=== PATIENT | female | born 1940 | race Caucasian/White ===

== ENCOUNTER 2016-10-16 18:48 | Emergency (ER) | payer MEDICARE, BC ==
[2016-10-16] MEDS ORDERED: ASPIRIN 81 MG TABLET, CHEWABLE PO ONE (19:04)
--- NOTE | 2016-10-16 19:05 | ER Document Report ---
ED Medical Screen (RME) - General Stated Complaint: CHEST PAIN Notes: Patient states she has been having chest pain since 9:00 this morning, stating it feels like pressure. Denies pain radiation. No nausea or vomiting. States she was sick with cold symptoms about 3 weeks ago. States she was under the care of a consumer loan officer many years ago, and had a nuclear stress test about 1 year ago which was normal. I have greeted and performed a rapid initial assessment of this patient. A comprehensive ED assessment and evaluation of the patient, analysis of test results and completion of the medical decision making process will be conducted by additional ED providers. TRAVEL OUTSIDE OF THE [place] IN LAST 30 DAYS: No - Related Data Allergies/Adverse Reactions: nitrofurantoin Allergy (Verified 10/16/16 19:04) Sulfa (Sulfonamide Antibiotics) Allergy (Verified 10/16/16 19:04) DUST Allergy (Uncoded 10/16/16 19:04) Past Medical History Past Surgical History: Reports: Hx Tubal Ligation Physical Exam - Cardiovascular Rhythm: Regular Heart sounds: Normal auscultation
[2016-10-16 19:48] LABS: PROTHROMBIN TIME 12.3 SEC (11.4-15.4)
[2016-10-16 19:57] LABS: ABSOLUTE LYMPHOCYTES (AUTO) 1.5 10^3/uL (0.5-4.7); ABSOLUTE MONOCYTES (AUTO) 0.5 10^3/uL (0.1-1.4); ABSOLUTE NEUT (AUTO) 2.2 10^3/uL (1.7-8.2); BASOPHILS % (AUTO) 0.6 % (0-2); EOSINOPHILS % (AUTO) 0.8 % (0-6); HEMATOCRIT 36.6 % (36.0-47.0); HGB HCT DIFFERENCE -0.6; LYMPHOCYTES % (AUTO) 35.5 % (13-45); MEAN CORPUSCULAR HGB CONC 32.9 g/dL (32.0-36.0); MEAN CORPUSCULAR VOLUME 88 fl (80-97); RED BLOOD COUNT 4.15 10^6/uL (3.72-5.28); RED CELL DISTRIBUTION WIDTH 14.5 % (11.5-14.0); SEGMENTED NEUTROPHILS % (AUTO) 52.1 % (42-78); WHITE BLOOD COUNT 4.3 10^3/uL (4.0-10.5)
--- NOTE | 2016-10-16 20:00 | ER Document Report ---
ED Cardiac - General Chief Complaint: Chest Pain Stated Complaint: CHEST PAIN Time seen by provider: 20:00 Mode of Arrival: Ambulatory Information source: Patient TRAVEL OUTSIDE OF THE [place] IN LAST 30 DAYS: No - HPI Patient complains to provider of: Chest pain Was the onset of pain: Gradual Is the pain a: New problem Chest pain location: Other - Left chest wall Quality of pain: Mild, Achy Severity now: Mild Severity at worst: Moderate Pain level currently: 1 Chest pain precipitating factors: At Rest Positive cardiac history: No Exacerbated by: Coughing, Deep breaths, Torso movement Relieved by: Nothing Similar symptoms previously: No Recently seen / treated by doctor: No Notes: Patient is a 76-year-old female who presents to the emergency room complaining of left-sided chest pain that started around 8:30 this morning, it is dull and achy in nature, she denies diaphoresis or shortness of breath, she states she feels that she is gas bubble trapped there but has been belching throughout the day with no relief, she reports it is increased with deep breaths, coughing or torso movement, as well as palpation of the chest wall, patient denies any fevers, no nausea, vomiting or diarrhea - Related Data Allergies/Adverse Reactions: nitrofurantoin Allergy (Verified 10/16/16 19:04) Sulfa (Sulfonamide Antibiotics) Allergy (Verified 10/16/16 19:04) DUST Allergy (Uncoded 10/16/16 19:04) Past Medical History - General Information source: Patient - Social History Smoking Status: Unknown if Ever Smoked Chew tobacco use (# tins/day): No Frequency of alcohol use: None Drug Abuse: None Family History: Reviewed & Not Pertinent Patient has suicidal ideation: No Patient has homicidal ideation: No Renal/ Medical History: Denies: Hx Peritoneal Dialysis Past Surgical History: Reports: Hx Tubal Ligation - Immunizations Hx Diphtheria, Pertussis, Tetanus Vaccination: Yes Review of Systems - Review of Systems Constitutional: No symptoms reported EENT: No symptoms reported Cardiovascular: Chest pain Respiratory: No symptoms reported Gastrointestinal: No symptoms reported Genitourinary: No symptoms reported Female Genitourinary: No symptoms reported Musculoskeletal: No symptoms reported Skin: No symptoms reported Hematologic/Lymphatic: No symptoms reported Neurological/Psychological: No symptoms reported -: Yes All other systems reviewed and negative Physical Exam - Vital signs Vitals: Temp Pulse Resp BP Pulse Ox 98.0 F 82 19 139/68 H 100 10/16/16 19:03 10/16/16 19:03 10/16/16 19:03 10/16/16 19:03 10/16/16 19:03 Interpretation: Normal - General General appearance: Appears well, Alert - HEENT Head: Normocephalic, Atraumatic Eyes: Normal Pupils: PERRL - Respiratory Respiratory status: No respiratory distress Chest status: Tender - Tender to palpate left anterior chest wall Breath sounds: Normal Chest palpation: Normal - Cardiovascular Rhythm: Regular Heart sounds: Normal auscultation Murmur: No - Abdominal Inspection: Normal Distension: No distension Bowel sounds: Normal Tenderness: Nontender Organomegaly: No organomegaly - Back Back: Normal, Nontender - Extremities General upper extremity: Normal inspection, Nontender, Normal color, Normal ROM , Normal temperature General lower extremity: Normal inspection, Nontender, Normal color, Normal ROM , Normal temperature, Normal weight bearing. No: Bob's sign - Neurological Neuro grossly intact: Yes Cognition: Normal Orientation: AAOx4 Delmy Coma Scale Eye Opening: Spontaneous [place] Coma Scale Verbal: Oriented [place] Coma Scale Motor: Obeys Commands Delmy Coma Scale Total: 15 Speech: Normal Motor strength normal: LUE, RUE, LLE, RLE Sensory: Normal - Psychological Associated symptoms: Normal affect, Normal mood - Skin Skin Temperature: Warm Skin Moisture: Dry Skin Color: Normal Course - Re-evaluation Re-evalutation: 10/17/16 00:58 Patient's lab, imaging in EKG findings unremarkable in the emergency room, pain is reproducible with palpation of the chest wall, symptoms have been going on for greater than 12 hours at this point in time, and cardiac enzymes are negative, symptoms are consistent with musculoskeletal pain, patient was given nothing hydrocodone dose pack, advised to follow-up with her primary care provider or return if symptoms worsen, patient acknowledges understanding and agreement with this plan - Vital Signs Vital signs: Temp Pulse Resp BP Pulse Ox 98.0 F 82 12 127/63 H 99 10/16/16 19:03 10/16/16 19:03 10/16/16 23:01 10/16/16 23:01 10/16/16 23:01 - Laboratory Result Diagrams: 10/16/16 19:22 10/16/16 19:22 Laboratory results interpreted by me: 10/16/16 10/16/16 19:22 19:22 RDW 14.5 H BUN 21 H - Diagnostic Test Radiology reviewed: Image reviewed, Reports reviewed - EKG Interpretation by Me EKG shows normal: Sinus rhythm Rate: Normal Rhythm: NSR Discharge - Discharge Clinical Impression: Chest wall pain Condition: Stable Disposition: HOME, SELF-CARE Instructions: Chest Wall Pain ([facility]) Additional Instructions: Follow up with your primary care provider in one to 2 days. Return to the emergency room immediately if symptoms worsen or any additional concerns. Referrals: MEGAN BAKER MD [Primary Care Provider] - Follow up as needed
[2016-10-16 20:01] LABS: ALANINE AMINOTRANSFERASE 42 U/L (9-52); ALBUMIN 4.2 g/dL (3.5-5.0); ALKALINE PHOSPHATASE 69 U/L (38-126); ANION GAP 9 (5-19); ASPARTATE AMINO TRANSFERASE 30 U/L (14-36); BILIRUBIN,TOTAL 0.3 mg/dL (0.2-1.3); BLOOD UREA NITROGEN 21 mg/dL (7-20); CALCIUM 9.6 mg/dL (8.4-10.2); CARBON DIOXIDE 28 mmol/L (22-30); CHLORIDE 102 mmol/L (98-107); CREATINE KINASE 70 U/L (30-135); CREATININE RESULT 0.76 mg/dL (0.52-1.25); GLUCOSE 105 mg/dL (75-110); POTASSIUM 4.5 mmol/L (3.6-5.0); SODIUM 139.1 mmol/L (137-145); TOTAL PROTEIN 6.9 g/dL (6.3-8.2)
[2016-10-16 20:14] LABS: TROPONIN I < 0.012 ng/mL
[2016-10-16] MEDS ORDERED: MAG HYDROX/AL HYDROX/SIMETH SUSP 30 ML UDCUP PO ONE (21:32)
[2016-10-16] MEDS ORDERED: LIDOCAINE 2% VISCOUS SOLN 20 ML UDCUP PO ONE (21:32)
[2016-10-16] MEDS ORDERED: METOCLOPRAMIDE HCL ORAL SOLN 10 MG/10 ML UDCUP PO ONE (21:32)
[2016-10-16] MEDS ORDERED: HYDROCODONE/ACETAMINOPHEN 5-325 MG TABLET PO ONE (22:16)
[2016-10-16] MEDS ORDERED: HYDROCODONE/ACETAMINOPHEN 5-325 MG 6 TAB/DSPK PO PRN (23:13)
[2016-10-16 23:31] VITALS: BP 127/63
--- NOTE | 2016-10-17 08:38 | EKG REPORT ---
SEVERITY:- NORMAL ECG - SINUS RHYTHM : Confirmed by: Anderson Baltazar 17-Oct-2016 08:37:12
== END 2016-10-16 23:20 | disposition home or self-care (01) ==
LOC: ER 18:48
DX: R07.89 Other chest pain (principal); R14.2 Eructation; Z88.1 Allergy status to other antibiotic agents; Z88.2 Allergy status to sulfonamides; Z91.048 Other nonmedicinal substance allergy status
CPT/HCPCS: 93005; 99285; 36415; 82553; 82550; 85025; 85610; 80053; 84484; 71010; 93010; A9270 ×4; J3490

== ENCOUNTER 2016-12-01 09:13 | Day surgery (SDC) | payer MEDICARE, BC ==
[~2016-12-01 09:13] MED LIST: CHONDR SU A NA/HYALUR INTRAOC KIT (SURGICARE) ONE; EPINEPHRINE INJ/PF 1 MG/1 ML AMPULE ONE; KETOROLAC TROMETHAMINE 0.45% 4 DROP/0.4 ML DROPERETTE OS PRN; LIDOCAINE 1% INJ-PF (10 MG/ML) 30 ML SDV ONE; MIDAZOLAM 2 MG/2 ML INJ ONE
[2016-12-01] MEDS: CYCLOPENTOLATE 0.2%/PHENYLEPHRINE 1% OPH SOLN 2 ML OS PRN ×3 (09:28→09:51)
[2016-12-01] MEDS: TROPICAMIDE 1% OPH SOLN 3 ML OS PRN ×3 (09:28→09:51)
[2016-12-01] MEDS: TETRACAINE HCL 0.5% OPH SOLN 2 ML OS PRN ×3 (09:28→10:10)
[2016-12-01] MEDS: BESIFLOXACIN HCL 0.6% OPH SUSP 5 ML BOTTLE OS PRN ×4 (09:29→10:34)
[2016-12-01] MEDS ORDERED: PHENYLEPHRINE/KETOROLAC 1%-0.3% 4 ML VIAL ONE (09:36)
[2016-12-01] MEDS ORDERED: MIDAZOLAM 2 MG/2 ML INJ ONE (09:41)
[2016-12-01] MEDS ORDERED: FENTANYL CITRATE INJ/PF 100 MCG/2 ML AMPUL ONE (09:41)
--- NOTE | 2016-12-01 19:48 | [facility] OPERATIVE REPORT E ---
[facility] Operative Report NAME: LAURY PALMER AGE: 76Y DATE OF SURGERY: 12/01/2016 ROOM: PREOPERATIVE DIAGNOSIS: Cataract, left eye. POSTOPERATIVE DIAGNOSIS: Cataract, left eye. OPERATION: Cataract extraction with intraocular lens implant of the left eye. SURGEON: MARCELLE CHRISTIAN M.D. ANESTHESIA: Topical. PROCEDURE: After obtaining appropriate consent, the patient's left eye was prepped and draped in sterile fashion as well as the surgeon in a sterile manner and cataract surgery was started. First a paracentesis blade was used to make a small side-port incision. Viscoelastic was used to inflate the anterior chamber. Next a 2.4 mm incision was made with the paracentesis blade. A continuous capsulorrhexis incision was made using a cystotome and Utrata forceps. Following this hydrodissection was carried out to make the lens fully loose and mobile and it was rotated 90 degrees. Following this, a ozywxk-xgg-vgxgdvl technique was used to phacoemulsify the lens with a CDE of 8.21. The remaining cortex was removed with irrigation/aspiration. Provisc was instilled into the capsular bag to inflate the bag. A SN60WF, 18.5 diopter lens was placed. The remaining viscoelastic material was removed with irrigation/aspiration. Following this, a 10-0 nylon suture was used to close the incision and it was found to be watertight. Vigamox was instilled in the eye and a protective shield was placed over the eye. The patient returned to the postoperative recovery in stable condition. DICTATING PHYSICIAN: MARCELLE CHRISTIAN M.D. [id number] PHY#: [id number] ID: [id number] JOB#: [id number] ACCT: [id number] cc:MARCELLE CHRISTIAN M.D. >
--- NOTE | 2016-12-02 11:13 | [facility] DISCHARGE SUMMARY E ---
[facility] Discharge Summary NAME: LAURY PALMER AGE: 76Y ADMITTED: 12/01/2016 DISCHARGED: 12/01/2016 HISTORY OF PRESENT ILLNESS AND HOSPITAL COURSE: This is a 76-year-old female who underwent cataract extraction of the left eye. DIAGNOSIS: Cataract, left eye. HOSPITAL COURSE: She underwent surgery because she was having glare from headlights making it difficult to drive at night. DISCHARGE INSTRUCTIONS: 1. She should be on a regular diet. 2. No bending at the waist and no heavy lifting. 3. She is to use Besivance, Ilevro, and Durezol at 3 p.m. and 8 p.m. and sleep with a rigid shield. 4. I will see her for her one-day postoperative tomorrow. DICTATING PHYSICIAN: MARCELLE CHRISTIAN M.D. [id number] PHY#: [id number] ID: [id number] JOB#: [id number] ACCT: [id number] cc:MARCELLE CHRISTIAN M.D. >
== END 2016-12-01 11:16 | disposition home or self-care (01) ==
LOC: SC 09:13
PROVIDERS: ATTEND Internal Medicine
PROC: 08RK3JZ Replacement of Left Lens with Synthetic Substitute, Percutaneous Approach (ICD-10-PCS; principal; 2016-12-01 10:00)
DX: H25.813 Combined forms of age-related cataract, bilateral (principal); H57.03 Miosis; I10 Essential (primary) hypertension; K21.9 Gastro-esophageal reflux disease without esophagitis; Z79.899 Other long term (current) drug therapy; Z88.0 Allergy status to penicillin; Z88.2 Allergy status to sulfonamides
CPT/HCPCS: 66984; V2632; J2250; J3490 ×2; A9270; J3010; C9447; 142; J0171

== ENCOUNTER 2016-12-15 09:07 | Day surgery (SDC) | payer MEDICARE, BC ==
[~2016-12-15 09:07] MED LIST changes: -CHONDR SU A NA/HYALUR INTRAOC KIT (SURGICARE) ONE; -EPINEPHRINE INJ/PF 1 MG/1 ML AMPULE ONE; +KETOROLAC TROMETHAMINE 0.45% 4 DROP/0.4 ML DROPERETTE OD PRN; -KETOROLAC TROMETHAMINE 0.45% 4 DROP/0.4 ML DROPERETTE OS PRN; -LIDOCAINE 1% INJ-PF (10 MG/ML) 30 ML SDV ONE; -MIDAZOLAM 2 MG/2 ML INJ ONE
[2016-12-15] MEDS ORDERED: EPINEPHRINE INJ/PF 1 MG/1 ML AMPULE ONE (09:10)
[2016-12-15] MEDS ORDERED: LIDOCAINE 1% INJ-PF (10 MG/ML) 30 ML SDV ONE (09:11)
[2016-12-15] MEDS ORDERED: CHONDR SU A NA/HYALUR INTRAOC KIT (SURGICARE) ONE (09:11)
[2016-12-15] MEDS: CYCLOPENTOLATE 0.2%/PHENYLEPHRINE 1% OPH SOLN 2 ML OD PRN ×3 (09:54→10:14)
[2016-12-15] MEDS: TROPICAMIDE 1% OPH SOLN 3 ML OD PRN ×3 (09:54→10:14)
[2016-12-15] MEDS: BESIFLOXACIN HCL 0.6% OPH SUSP 5 ML BOTTLE OD PRN ×3 (09:54→11:13)
[2016-12-15] MEDS: TETRACAINE HCL 0.5% OPH SOLN 2 ML OD PRN ×3 (09:55→10:41)
[2016-12-15] MEDS ORDERED: MIDAZOLAM 2 MG/2 ML INJ ONE (10:22)
[2016-12-15] MEDS ORDERED: PHENYLEPHRINE/KETOROLAC 1%-0.3% 4 ML VIAL ONE (10:51)
--- NOTE | 2016-12-15 19:52 | [facility] OPERATIVE REPORT E ---
[facility] Operative Report NAME: LAURY PALMER AGE: 76Y DATE OF SURGERY: ROOM: PREOPERATIVE DIAGNOSIS: CATARACT, RIGHT EYE. POSTOPERATIVE DIAGNOSIS: CATARACT, RIGHT EYE. OPERATION: Cataract extraction with intraocular lens implant of the right eye. SURGEON: MARCELLE CHRISTIAN M.D. ANESTHESIA: Topical. PROCEDURE: After obtaining appropriate consent, the patient's right eye was prepped and draped in sterile fashion as well as the surgeon in a sterile manner and cataract surgery was started. First a paracentesis blade was used to make a small side-port incision. Viscoelastic was used to inflate the anterior chamber. Next a 2.4 mm incision was made with the paracentesis blade. A continuous capsulorrhexis incision was made using a cystotome and Utrata forceps. Following this hydrodissection was carried out to make the lens fully loose and mobile and it was rotated 90 degrees. Following this, a qywzoe-qpt-xixtalk technique was used to phacoemulsify the lens with a CDE of 6.12. The remaining cortex was removed with irrigation/aspiration. Provisc was instilled into the capsular bag to inflate the bag. A SN60WF 19.0 diopter lens was placed. The remaining viscoelastic material was removed with irrigation/aspiration. Following this, a 10-0 nylon suture was used to close the incision and it was found to be watertight. Vigamox was instilled in the eye and a protective shield was placed over the eye. The patient returned to the postoperative recovery in stable condition. DICTATING PHYSICIAN: MARCELLE CHRISTIAN M.D. [id number] PHY#: [id number] ID: [id number] JOB#: [id number] ACCT: [id number] cc:MARCELLE CHRISTIAN M.D. >
--- NOTE | 2016-12-15 19:53 | [facility] DISCHARGE SUMMARY E ---
[facility] Discharge Summary NAME: LAURY PALMER AGE: 76Y ADMITTED: 12/15/2016 DISCHARGED: FINAL DIAGNOSIS: Cataract, right eye. HOSPITAL COURSE: This is a 76-year-old female who underwent cataract extraction of the right eye. She underwent surgery because she was having difficulty reading road signs and having to get closer to them and having significant glare at night. She should be on a regular diet, no bending at her waist, no heavy lifting. She is to use Besivance, Ilevro, and Durezol at 3 p.m. and 8 p.m. and sleep with a rigid shield. I will see her for 1 day postoperative tomorrow. DICTATING PHYSICIAN: MARCELLE CHRISTIAN M.D. [id number] PHY#: [id number] ID: [id number] JOB#: [id number] ACCT: [id number] cc:MARCELLE CHRISTIAN M.D. >
== END 2016-12-15 11:56 | disposition home or self-care (01) ==
LOC: SC 09:07
PROVIDERS: ATTEND Internal Medicine
PROC: 08RJ3JZ Replacement of Right Lens with Synthetic Substitute, Percutaneous Approach (ICD-10-PCS; principal; 2016-12-15 10:30)
DX: H25.811 Combined forms of age-related cataract, right eye (principal); H57.03 Miosis; Z96.1 Presence of intraocular lens; I49.9 Cardiac arrhythmia, unspecified; Z88.0 Allergy status to penicillin; Z88.2 Allergy status to sulfonamides; Z79.899 Other long term (current) drug therapy
CPT/HCPCS: 66984; V2632; J2250; J3490 ×2; A9270; J0171; C9447; 142

== ENCOUNTER → 2019-01-23 | Outpatient (CLI) | payer MEDICARE, BC ==
--- NOTE | 2019-01-23 15:46 | EKG REPORT ---
SEVERITY:- NORMAL ECG - SINUS RHYTHM : Confirmed by: Mahamed Olivera MD 23-Jan-2019 15:46:01
== END ==
LOC: OD 14:09
PROVIDERS: ATTEND Orthopaedic Surgery
DX: Z01.810 Encounter for preprocedural cardiovascular examination (principal); G56.30 Lesion of radial nerve, unspecified upper limb
CPT/HCPCS: 93005; 93010

== ENCOUNTER 2019-07-26 17:48 | Inpatient (IN) | payer MEDICARE, BC ==
--- NOTE | 2019-07-26 18:41 | RADIOLOGY REPORT (SQ) ---
EXAM DESCRIPTION: HIP RIGHT AP/LATERAL COMPLETED DATE/TIME: 07/26/2019 6:15 pm REASON FOR STUDY: fall COMPARISON: None. NUMBER OF VIEWS: 3 images of the pelvis and right hip including cross-table lateral. LIMITATIONS: None. FINDINGS: Osteopenic. Right superior pubic ramus fracture looks mildly comminuted. Acetabulum and right femur intact. Sacrum poorly evaluated due to obscuring stool. OTHER: No other significant finding. IMPRESSION: Right superior pubic ramus fracture. Osteopenia. TECHNICAL DOCUMENTATION: JOB ID: [id number] Reading location - IP/workstation name: [email or web address]
[2019-07-26] MEDS ORDERED: MORPHINE SULFATE 10 MG/ML INJ IV ONE (20:35)
[2019-07-26 21:39] LABS: ABSOLUTE LYMPHOCYTES (AUTO) 1.2 10^3/uL (0.5-4.7); ABSOLUTE MONOCYTES (AUTO) 0.6 10^3/uL (0.1-1.4); ABSOLUTE NEUT (AUTO) 7.4 10^3/uL (1.7-8.2); BASOPHILS % (AUTO) 0.3 % (0-2); EOSINOPHILS % (AUTO) 0.1 % (0-6); HEMATOCRIT 35.6 % (36.0-47.0); HEMOGLOBIN 11.9 g/dL (12.0-15.5); LYMPHOCYTES % (AUTO) 12.9 % (13-45); MEAN CORPUSCULAR HEMOGLOBIN 29.6 pg (27.0-33.4); MEAN CORPUSCULAR HGB CONC 33.4 g/dL (32.0-36.0); MEAN CORPUSCULAR VOLUME 89 fl (80-97); MONOCYTES % (AUTO) 6.5 % (3-13); PLATELET COUNT 143 10^3/uL (150-450); RED BLOOD COUNT 4.02 10^6/uL (3.72-5.28); RED CELL DISTRIBUTION WIDTH 14.7 % (11.5-14.0); SEGMENTED NEUTROPHILS % (AUTO) 80.2 % (42-78); TOTAL CELLS COUNTED % (AUTO) 100 %; WHITE BLOOD COUNT 9.3 10^3/uL (4.0-10.5)
[2019-07-26 21:43] LABS: APPEARANCE,URINE CLEAR; BILIRUBIN,URINE NEGATIVE (NEGATIVE); COLOR,URINE STRAW; GLUCOSE, URINE NEGATIVE (NEGATIVE); KETONES,URINE TRACE mg/dL (NEGATIVE); PROTEIN,URINE NEGATIVE (NEGATIVE); URINE SPECIFIC GRAVITY 1.008; UROBILINOGEN,URINE NEGATIVE mg/dL (<2.0)
--- NOTE | 2019-07-26 21:44 | ER Document Report ---
ED General - General Chief Complaint: Hip Pain Stated Complaint: FALL/HIP PAIN Time Seen by Provider: 07/26/19 20:37 Primary Care Provider: MEGAN BAKER MD [Primary Care Provider] - Follow up as needed Notes: 79-year-old woman presents to the emergency department with a history of a fall at home apparently was unable to get up. EMS was called and she was transported to the emergency department she was given 50 mg of fentanyl in route. X-rays revealed a pelvic ramus fracture. Denies any other associated injuries. She denies loss of consciousness or head injury. TRAVEL OUTSIDE OF THE [place] IN LAST 30 DAYS: No - Related Data Allergies/Adverse Reactions: nitrofurantoin Allergy (Verified 07/26/19 20:44) TONGUE SWELL Penicillins Allergy (Verified 07/26/19 20:44) RASH Sulfa (Sulfonamide Antibiotics) Allergy (Verified 07/26/19 20:44) NAUSEOUS DUST Allergy (Uncoded 07/26/19 20:44) Past Medical History - Social History Smoking Status: Never Smoker Family History: Reviewed & Not Pertinent Patient has suicidal ideation: No Patient has homicidal ideation: No - Past Medical History Cardiac Medical History: Denies: Hx Heart Attack, Hx Hypertension Pulmonary Medical History: Denies: Hx Asthma Neurological Medical History: Denies: Hx Cerebrovascular Accident, Hx Seizures Renal/ Medical History: Denies: Hx Peritoneal Dialysis GI Medical History: Denies: Hx Hepatitis, Hx Hiatal Hernia, Hx Ulcer Infectious Medical History: Denies: Hx Hepatitis Past Surgical History: Reports: Hx Tubal Ligation. Denies: Hx Mastectomy, Hx Open Heart Surgery, Hx Pacemaker - Immunizations Hx Diphtheria, Pertussis, Tetanus Vaccination: Yes Review of Systems - Review of Systems Notes: Constitutional: Negative for fever. Cardiovascular: Negative for chest pain. Respiratory: Negative for shortness of breath. Gastrointestinal: Negative for vomiting Musculoskeletal: + Right sided pelvic/hip pain. Skin: Negative for rash. Neurological: Negative for weakness or numbness. 10 point ROS negative except as marked above and in HPI. Physical Exam - Vital signs Vitals: Temp Pulse Resp BP Pulse Ox 97.8 F 84 16 149/77 H 98 07/26/19 17:55 07/26/19 17:55 07/26/19 17:55 07/26/19 17:55 07/26/19 17:55 - Notes Notes: PHYSICAL EXAMINATION: Physical Exam: General: Well-nourished well-developed elderly female in moderate distress secondary to pain HEENT: NC/AT, pupils equal round and reactive to light, MM moist,nares clear, Neck: supple, no adenopathy, no masses. Lungs: clear, no wheezing, no rales no rhonchi CVS: Regular rate and rhythm no murmur gallop or rub Abdomen: Soft active nontender, no masses, no hepatosplenomegaly Musculoskeletal: Tenderness in the right pelvis/hip area Ext: Left shoulder tenderness, No edema clubbing or cyanosis. Neuro: Alert and responsive, moving all 4 extremities on command, cranial nerves intact. Skin: Intact no open lesions, no rash PSYCH: Normal mood, normal affect. Course - Re-evaluation Re-evalutation: 07/26/19 21:47 I discussed the findings of the x-ray with the patient and her family explaining that she has a fracture of the pelvis. At 2100-hour, orthopedist education and outreach coordinator was contacted, states that he will follow the patient in consultation as this is a nonoperable injury. Hospitalist was contacted, , states that he will admit the patient to a medical bed for pain management and physical therapy as tolerated. - Vital Signs Vital signs: Temp Pulse Resp BP Pulse Ox 98.4 F 98 16 139/73 H 97 07/26/19 20:33 07/26/19 20:33 07/26/19 20:33 07/26/19 20:33 07/26/19 20:33 - Laboratory Result Diagrams: 07/26/19 21:10 07/26/19 21:10 Discharge - Discharge Clinical Impression: Pelvis fracture, right Qualifiers: Encounter type: initial encounter Pelvic bone location: pubis Sublocation of pubis: unspecified portion of pubis Fracture type: closed Qualified Code(s): S32.501A - Unspecified fracture of right pubis, initial encounter for closed fracture Condition: Good Disposition: ADMITTED INPATIENT Admitting Provider: Idris (Hospitalist) Unit Admitted: Medical Floor Referrals: MEGAN BAKER MD [Primary Care Provider] - Follow up as needed
[2019-07-26 21:46] LABS: ALBUMIN 3.8 g/dL (3.5-5.0); ALKALINE PHOSPHATASE 59 U/L (38-126); ANION GAP 9 (5-19); ASPARTATE AMINO TRANSFERASE 28 U/L (14-36); BILIRUBIN,TOTAL 0.5 mg/dL (0.2-1.3); BLOOD UREA NITROGEN 20 mg/dL (7-20); CALCIUM 9.2 mg/dL (8.4-10.2); CARBON DIOXIDE 26 mmol/L (22-30); CHLORIDE 101 mmol/L (98-107); GLUCOSE 121 mg/dL (75-110); POTASSIUM 3.7 mmol/L (3.6-5.0); TOTAL PROTEIN 6.5 g/dL (6.3-8.2)
[2019-07-26] MEDS ORDERED: MAGNESIUM HYDROXIDE SUSP 30 ML UDCUP PO PRN (22:19)
[2019-07-26] MEDS ORDERED: PROMETHAZINE HCL INJ 25 MG/1 ML VIAL IV PRN (22:19)
[2019-07-26] MEDS ORDERED: MAG HYDROX/AL HYDROX/SIMETH SUSP 30 ML UDCUP PO PRN (22:19)
[2019-07-26] MEDS ORDERED: ATORVASTATIN CALCIUM 40 MG TABLET PO ONE (22:30)
[2019-07-26] MEDS ORDERED: PRIMIDONE 50 MG TABLET PO ONE (22:30)
[2019-07-26] MEDS: HEPARIN SOD (PORCINE) 5,000 UNIT/ML 1 ML VIAL SUBCUT SCH (23:39)
[2019-07-27] MEDS ORDERED: PRIMIDONE 50 MG TABLET ONE (00:40)
--- NOTE | 2019-07-27 01:08 | PDOC H&P ---
History of Present Illness Admission Date/PCP: 07/26/19 21:53 MEGAN BAKER MD Patient complains of: Pelvic pain History of Present Illness: LAURY PALMER is a 79 year old female who presented to the emergency room with acute pelvic pain. Patient admits the acute onset of pain in her right hip/pelvis immediately after an accidental fall while cleaning around the desks in their home office shortly before her EMS arrival to the emergency room. The pelvic pain is a constant severe sharp pain in the right anterior aspect of the hip/pelvis without radiation, worsened by any movements or attempts at weightbearing. She did not experience loss of consciousness or other injury in her fall. She denies associated or accompanying signs and symptoms. She denies prior similar episodes. She has not identified any additional aggravating or ameliorating factors for her pelvic pain. In the emergency room she was found to have a comminuted fracture of the right pubic ramus and was subsequently admitted to the hospital for further evaluation and treatment. Past Medical History Cardiac Medical History: Reports: Hyperlipidema Denies: Coronary Artery Disease, Myocardial Infarction, Hypertension Pulmonary Medical History: Denies: Asthma, Chronic Obstructive Pulmonary Disease (COPD) EENT Medical History: Reports: Cataracts, Eyes - Prescription lenses Denies: Ears - Hearing aids Neurological Medical History: Reports: Other - Essential tremor Denies: Hemorrhagic CVA, Ischemic CVA, Seizures Endocrine Medical History: Denies: Diabetes Mellitus Type 1, Diabetes Mellitus Type 2, Hyperthyroidism, Hypothyroidism, Obesity Renal/ Medical History: Denies: Chronic Kidney Disease, Nephrolithiasis Malignancy Medical History: Reports: None GI Medical History: Reports: Gastroesophageal Reflux Disease Denies: Cirrhosis, Crohn's Disease, Hepatitis, Hiatal Hernia, Ulcerative Colitis Musculoskeltal Medical History: Denies: Arthritis, Gout Skin Medical History: Denies: Eczema, Psoriasis Psychiatric Medical History: Denies: Alcohol Dependency, Substance Abuse, Tobacco Dependency Traumatic Medical History: Reports: None Hematology: Denies: Anemia, Bleeding Tendencies Infectious Medical History: Reports: None Past Surgical History Past Surgical History: Reports: Tonsillectomy, Tubal Ligation, Other - Hand surgery, bilateral cataract surgery, D&Cs x2, macular surgery Social History Information Source: Patient Lives with: Spouse/Significant other Smoking Status: Never Smoker Electronic Cigarette use?: No Frequency of Alcohol Use: None Hx Recreational Drug Use: No Drugs: None Hx Prescription Drug Abuse: No - Advance Directive Resuscitation Status: Full Code Surrogate healthcare decision maker:: Ivan Palmer Family History Family History: CAD, CVA, DM, Hypertension, Malignancy, Other - Macular degeneration, kidney disease Parental Family History Reviewed: Yes Children Family History Reviewed: No Sibling(s) Family History Reviewed.: Yes Medication/Allergy Home Medications: Lovastatin [Altoprev] 40 mg PO DAILY 11/28/16 Omeprazole 40 mg PO DAILY 11/28/16 Primidone [Mysoline] 0.5 tab PO QHS 11/28/16 Cyclosporine 0.05% Oph Emulsio [Restasis 0.05% Oph Emulsion Pf 0.4 ml] 1 drop OU BID 07/26/19 Allergies/Adverse Reactions: nitrofurantoin Allergy (Verified 07/26/19 20:44) TONGUE SWELL Penicillins Allergy (Verified 07/26/19 20:44) RASH Sulfa (Sulfonamide Antibiotics) Allergy (Verified 07/26/19 20:44) NAUSEOUS DUST Allergy (Uncoded 07/26/19 20:44) Review of Systems Constitutional: ABSENT: chills, fever(s) Eyes: ABSENT: visual disturbances, other - Eye pain Ears: ABSENT: hearing changes, other - Ear pain Nose, Mouth, and Throat: ABSENT: headache(s), mouth pain, sore throat Cardiovascular: ABSENT: chest pain, palpitations Respiratory: ABSENT: cough, dyspnea Gastrointestinal: ABSENT: abdominal pain, constipation, diarrhea, nausea, vomiting Genitourinary: ABSENT: dysuria, hematuria Musculoskeletal: PRESENT: other - Pelvic pain as described in the history of present illness. ABSENT: back pain, joint swelling, muscle weakness Integumentary: ABSENT: pruritus, rash Neurological: ABSENT: confusion, convulsions, focal weakness, memory loss, syncope Psychiatric: ABSENT: anxiety, depression Endocrine: ABSENT: cold intolerance, heat intolerance Hematologic/Lymphatic: ABSENT: easy bleeding, easy bruising Allergic/Immunologic: ABSENT: seasonal rhinorrhea Physical Exam Vital Signs: Temp Pulse Resp BP Pulse Ox 98.4 F 98 19 116/54 L 96 07/26/19 20:33 07/26/19 20:33 07/26/19 21:21 07/26/19 21:21 07/26/19 21:21 Intake & Output 07/24/19 07/25/19 07/26/19 23:59 23:59 23:59 Weight 62.596 kg General appearance: PRESENT: cooperative, mild distress - Secondary to pelvic pain Head exam: PRESENT: atraumatic, normocephalic Eye exam: PRESENT: conjunctiva pink. ABSENT: conjunctival injection, scleral icterus Ear exam: PRESENT: normal external ear exam. ABSENT: bleeding, drainage Mouth exam: PRESENT: dry mucosa, neck supple Neck exam: ABSENT: thyromegaly, tracheal deviation Respiratory exam: PRESENT: clear to auscultation [place], symmetrical, unlabored Cardiovascular exam: PRESENT: RRR. ABSENT: clicks, gallop, rubs Pulses: PRESENT: normal radial pulses, normal dorsalis pedis pul Vascular exam: PRESENT: normal capillary refill. ABSENT: pallor GI/Abdominal exam: PRESENT: normal bowel sounds, soft, tenderness - Right inguinal area (secondary to pelvic fracture) Rectal exam: PRESENT: deferred Extremities exam: ABSENT: joint swelling, pedal edema Musculoskeletal exam: ABSENT: deformity, dislocation Neurological exam: PRESENT: alert, oriented to person, oriented to place, oriented to time, oriented to situation, CN II-XII grossly intact. ABSENT: motor sensory deficit Psychiatric exam: PRESENT: appropriate affect, normal mood Skin exam: PRESENT: dry, intact, warm. ABSENT: jaundice, rash, urticaria Results Laboratory Results: 07/26/19 21:10 07/26/19 21:10 07/26/19 07/26/19 07/26/19 21:10 21:10 21:13 WBC 9.3 RBC 4.02 Hgb 11.9 L Hct 35.6 L MCV 89 MCH 29.6 MCHC 33.4 RDW 14.7 H Plt Count 143 L Seg Neutrophils % 80.2 H Sodium 136.3 L Potassium 3.7 Chloride 101 Carbon Dioxide 26 Anion Gap 9 BUN 20 Creatinine 0.73 Est GFR ( Amer) > 60 Glucose 121 H Calcium 9.2 Total Bilirubin 0.5 AST 28 Alkaline Phosphatase 59 Total Protein 6.5 Albumin 3.8 Urine Color STRAW Urine Appearance CLEAR Urine pH 8.0 Ur Specific [place] 1.008 Urine Protein NEGATIVE Urine Glucose (UA) NEGATIVE Urine Ketones TRACE H Urine Blood NEGATIVE Urine RBC (Auto) 0 Impressions: Hip/Pelvis X-Ray 07/26/19 17:56 IMPRESSION: Right superior pubic ramus fracture. Osteopenia. Assessment and Plan - Diagnosis (1) Fracture of right superior pubic ramus Qualifiers: Encounter type: initial encounter Fracture type: closed Qualified Code(s): S32.511A - Fracture of superior rim of right pubis, initial encounter for closed fracture Is this a current diagnosis for this admission?: Yes (2) Pain due to fracture Is this a current diagnosis for this admission?: Yes (3) Hyperlipidemia Qualifiers: Hyperlipidemia type: unspecified Qualified Code(s): E78.5 - Hyperlipidemia, unspecified Is this a current diagnosis for this admission?: Yes (4) GERD (gastroesophageal reflux disease) Qualifiers: Esophagitis presence: esophagitis presence not specified Qualified Code(s): K21.9 - Gastro-esophageal reflux disease without esophagitis Is this a current diagnosis for this admission?: Yes (5) Essential tremor Is this a current diagnosis for this admission?: Yes - Plan Summary Summary: Patient will be admitted to a medical bed and will receive routine supportive and symptomatic cares. client services director consultation will be obtained as will physical therapy, Occupational Therapy and speech therapy in anticipation of discharge to a nursing home facility for rehabilitation or other rehabilitation facility. Patient's pain will be treated with morphine sulfate 2 to 4 mg IV every 2 hours as needed using a sliding scale for dosage. Patient will be continued on her usual home medications for her chronic medical problems as appropriate. Orthopedic consultation with Dr. Ivey was obtained by the emergency room physician prior to calling me. - Time Time Spent with patient: 25-34 minutes Medications reviewed and adjusted accordingly: Yes Anticipated discharge: SNF, Acute Rehab - Inpatient Certification Based on my medical assessment, after consideration of the patient's comorbidities, presenting symptoms, or acuity I expect that the services needed warrant INPATIENT care.: Yes I certify that my determination is in accordance with my understanding of Medicare's requirements for reasonable and necessary INPATIENT services [42 CFR 412.3e].: Yes Medical Necessity: Need Close Monitoring Due to Risk of Patient Decompensation, Need for Pain Control, Risk of Complication if Not Cared For in Hospital
[2019-07-27] MEDS ORDERED: ACETAMINOPHEN 325 MG TABLET PO PRN (02:00)
[2019-07-27] MEDS ORDERED: MORPHINE SULFATE 10 MG/ML INJ IV PRN ×2 (02:00)
[2019-07-27] MEDS: MORPHINE SULFATE 10 MG/ML INJ IV PRN ×2 (02:12→06:09)
[2019-07-27 05:07] LABS: HEMATOCRIT 34.4 % (36.0-47.0); HEMOGLOBIN 11.6 g/dL (12.0-15.5); MEAN CORPUSCULAR HEMOGLOBIN 29.6 pg (27.0-33.4); MEAN CORPUSCULAR HGB CONC 33.6 g/dL (32.0-36.0); MEAN CORPUSCULAR VOLUME 88 fl (80-97); PLATELET COUNT 126 10^3/uL (150-450); RED BLOOD COUNT 3.91 10^6/uL (3.72-5.28); RED CELL DISTRIBUTION WIDTH 14.8 % (11.5-14.0); WHITE BLOOD COUNT 8.4 10^3/uL (4.0-10.5)
[2019-07-27 05:23] LABS: ANION GAP 8 (5-19); BLOOD UREA NITROGEN 21 mg/dL (7-20); CALCIUM 8.8 mg/dL (8.4-10.2); CARBON DIOXIDE 27 mmol/L (22-30); CHLORIDE 99 mmol/L (98-107); CHOLESTEROL 174.19 mg/dL (0-200); GLUCOSE 109 mg/dL (75-110); POTASSIUM 3.9 mmol/L (3.6-5.0); TRIGLYCERIDES 49 mg/dL (<150)
[2019-07-27 05:34] LABS: DIRECT LDL 78 mg/dL (<100)
[2019-07-27] MEDS: HEPARIN SOD (PORCINE) 5,000 UNIT/ML 1 ML VIAL SUBCUT SCH ×3 (06:09→21:30)
[2019-07-27] MEDS: PANTOPRAZOLE SODIUM 40 MG TABLET.DR PO SCH ×2 (06:09→17:59)
--- NOTE | 2019-07-27 08:30 | PDOC CONSULTATION ---
Consultation Consult Date: 07/27/19 Provider Consulted: JESSICA WELLINGTON History of Present Illness Admission Date/PCP: 07/26/19 21:53 MEGAN BAKER MD Patient complains of: Right hip pain History of Present Illness: LAURY PALMER is a 79 year old female who was at home when she sustained a fall in her home office onto her right hip. Patient attempted to ambulate but unsuccessfully. Had significant pain with difficulty upon ambulation as noted above. Pain along her outer hip and into her groin. Patient was brought by EMS to the emergency room where x-rays revealed pubic rami fracture. Patient denies antecedent hip pain or previous injury to the right hip. Patient denies numbness or tingling. Denies headache dizziness or loss of consciousness. Pain 4/5 with attempted motion. Past Medical History Cardiac Medical History: Reports: Hyperlipidema Denies: Coronary Artery Disease, Myocardial Infarction, Hypertension Pulmonary Medical History: Denies: Asthma, Chronic Obstructive Pulmonary Disease (COPD) EENT Medical History: Reports: Cataracts, Eyes - Prescription lenses Denies: Ears - Hearing aids Neurological Medical History: Reports: Other - Essential tremor Denies: Hemorrhagic CVA, Ischemic CVA, Seizures Endocrine Medical History: Denies: Diabetes Mellitus Type 1, Diabetes Mellitus Type 2, Hyperthyroidism, Hypothyroidism, Obesity Renal/ Medical History: Denies: Chronic Kidney Disease, Nephrolithiasis Malignancy Medical History: Reports: None GI Medical History: Reports: Gastroesophageal Reflux Disease Denies: Cirrhosis, Crohn's Disease, Hepatitis, Hiatal Hernia, Ulcerative Colitis Musculoskeltal Medical History: Denies: Arthritis, Gout Skin Medical History: Denies: Eczema, Psoriasis Psychiatric Medical History: Denies: Alcohol Dependency, Depression, Substance Abuse, Tobacco Dependency Traumatic Medical History: Reports: None Hematology: Denies: Anemia, Sickle Cell Disease, Bleeding Tendencies Infectious Medical History: Reports: None Past Surgical History Past Surgical History: Reports: Tonsillectomy, Tubal Ligation, Other - Hand surgery, bilateral cataract surgery, D&Cs x2, macular surgery Denies: Amputation, Mastectomy, Pacemaker Social History Lives with: Spouse/Significant other Smoking Status: Never Smoker Electronic Cigarette use?: No Frequency of Alcohol Use: None Hx Recreational Drug Use: No Drugs: None Hx Prescription Drug Abuse: No - Advance Directive Resuscitation Status: Full Code Family History Family History: CAD, CVA, DM, Hypertension, Malignancy, Other - Macular degeneration, kidney disease Parental Family History Reviewed: No Children Family History Reviewed: No Sibling(s) Family History Reviewed.: No Medication/Allergy Home Medications: Lovastatin [Altoprev] 40 mg PO DAILY 11/28/16 Omeprazole 40 mg PO DAILY 11/28/16 Primidone [Mysoline] 0.5 tab PO QHS 11/28/16 Cyclosporine 0.05% Oph Emulsio [Restasis 0.05% Oph Emulsion Pf 0.4 ml] 1 drop OU BID 07/26/19 Allergies/Adverse Reactions: nitrofurantoin Allergy (Verified 07/26/19 20:44) TONGUE SWELL Penicillins Allergy (Verified 07/26/19 20:44) RASH Sulfa (Sulfonamide Antibiotics) Allergy (Verified 07/26/19 20:44) NAUSEOUS DUST Allergy (Uncoded 07/26/19 20:44) Review of Systems Constitutional: ABSENT: chills, fever(s), headache(s), weight gain, weight loss Eyes: ABSENT: visual disturbances Ears: ABSENT: hearing changes Cardiovascular: ABSENT: chest pain, dyspnea on exertion, edema, orthropnea, palpitations Respiratory: ABSENT: cough, hemoptysis Gastrointestinal: ABSENT: abdominal pain, constipation, diarrhea, hematemesis, hematochezia, nausea, vomiting Genitourinary: ABSENT: dysuria, hematuria Musculoskeletal: PRESENT: as per HPI Integumentary: ABSENT: rash, wounds Neurological: ABSENT: abnormal gait, abnormal speech, confusion, dizziness, fo luis weakness, syncope Psychiatric: ABSENT: anxiety, depression, homidical ideation, suicidal ideation Endocrine: ABSENT: cold intolerance, heat intolerance, menstrual abnormalities, polydipsia, polyuria Hematologic/Lymphatic: ABSENT: easy bleeding, easy bruising, lymphadenopathy Physical Exam Vital Signs: Temp Pulse Resp BP Pulse Ox 98.7 F 98 13 125/67 97 07/26/19 23:12 07/26/19 23:12 07/26/19 23:53 07/26/19 23:53 07/26/19 23:53 Intake & Output 07/26/19 07/27/19 07/28/19 06:59 06:59 06:59 Output Total 700 Balance -700 Weight 62.2 kg General appearance: PRESENT: no acute distress, well-developed, well-nourished Head exam: PRESENT: atraumatic, normocephalic Eye exam: PRESENT: conjunctiva pink, EOMI, PERRLA. ABSENT: scleral icterus Ear exam: PRESENT: normal external ear exam Mouth exam: PRESENT: moist, tongue midline Neck exam: PRESENT: full ROM. ABSENT: carotid bruit, JVD, lymphadenopathy, thyromegaly Cardiovascular exam: PRESENT: RRR. ABSENT: diastolic murmur, rubs, systolic murmur Pulses: PRESENT: normal dorsalis pedis pul, +2 pedal pulses bilateral Vascular exam: PRESENT: normal capillary refill GI/Abdominal exam: PRESENT: normal bowel sounds, soft. ABSENT: distended, guarding, mass, organolmegaly, rebound, tenderness Rectal exam: PRESENT: deferred Musculoskeletal exam: PRESENT: other - Right hip: Small area of ecchymosis along the lateral trochanteric region. Tenderness along the lateral trochanter. Mild tenderness on the superior rami. Patient unable to straight leg raise against resistance. Pain with logroll. Intact plantarflexion/dorsiflexion. Dorsalis pedis pulse 2+. No sensory deficits. No evidence of limb length inequality Neurological exam: PRESENT: alert, awake, oriented to person, oriented to place, oriented to time, oriented to situation, CN II-XII grossly intact. ABSENT: motor sensory deficit Psychiatric exam: PRESENT: appropriate affect, normal mood. ABSENT: homicidal ideation, suicidal ideation Skin exam: PRESENT: dry, intact, warm. ABSENT: cyanosis, rash Results Laboratory Results: 07/27/19 04:17 07/27/19 04:17 07/26/19 07/26/19 07/26/19 21:10 21:10 21:13 WBC 9.3 RBC 4.02 Hgb 11.9 L Hct 35.6 L MCV 89 MCH 29.6 MCHC 33.4 RDW 14.7 H Plt Count 143 L Seg Neutrophils % 80.2 H Sodium 136.3 L Potassium 3.7 Chloride 101 Carbon Dioxide 26 Anion Gap 9 BUN 20 Creatinine 0.73 Est GFR ( Amer) > 60 Glucose 121 H Calcium 9.2 Magnesium Total Bilirubin 0.5 AST 28 Alkaline Phosphatase 59 Total Protein 6.5 Albumin 3.8 Triglycerides Cholesterol LDL Cholesterol Direct VLDL Cholesterol HDL Cholesterol TSH Urine Color STRAW Urine Appearance CLEAR Urine pH 8.0 Ur Specific [place] 1.008 Urine Protein NEGATIVE Urine Glucose (UA) NEGATIVE Urine Ketones TRACE H Urine Blood NEGATIVE Urine RBC (Auto) 0 07/27/19 07/27/19 07/27/19 04:17 04:17 04:17 WBC 8.4 RBC 3.91 Hgb 11.6 L Hct 34.4 L MCV 88 MCH 29.6 MCHC 33.6 RDW 14.8 H Plt Count 126 L Seg Neutrophils % Sodium 133.5 L Potassium 3.9 Chloride 99 Carbon Dioxide 27 Anion Gap 8 BUN 21 H Creatinine 0.67 Est GFR ( Amer) > 60 Glucose 109 Calcium 8.8 Magnesium 1.9 Total Bilirubin AST Alkaline Phosphatase Total Protein Albumin Triglycerides 49 Cholesterol 174.19 LDL Cholesterol Direct 78 VLDL Cholesterol 10.0 HDL Cholesterol 82 TSH 2.15 Urine Color Urine Appearance Urine pH Ur Specific [place] Urine Protein Urine Glucose (UA) Urine Ketones Urine Blood Urine RBC (Auto) Impressions: Hip/Pelvis X-Ray 07/26/19 17:56 IMPRESSION: Right superior pubic ramus fracture. Osteopenia. Status: Image reviewed by me - I have reviewed patient's radiographs consistent with a comminuted superior rami fracture. No evidence of proximal femur involvement. Osteopenia noted. Assessment & Plan - Diagnosis (1) Fracture of right superior pubic ramus Qualifiers: Encounter type: initial encounter Fracture type: closed Qualified Code(s): S32.511A - Fracture of superior rim of right pubis, initial encounter for closed fracture Is this a current diagnosis for this admission?: Yes Plan: Patient's radiographs have been reviewed consistent with superior and inferior pubic rami fracture. Although patient has lateral hip pain there is no radiographic evidence of trochanteric or femoral neck fracture. At this point I have recommended occupational therapy and physical therapy. Most importantly pain control. Patient may be weightbearing as tolerated. Depending on patient's response to physical therapy she may require fpc facility. Furthermore if her pain persists we will consider possible MRI or CT to evaluate for possible occult fracture.
[2019-07-27] MEDS: DOCUSATE SODIUM 100 MG CAPSULE PO SCH ×3 (09:59→17:59)
[2019-07-27] MEDS: CYCLOSPORINE 0.05% OPH EMULSIO 0.4 ML DROPERETTE OU SCH ×2 (10:01→18:00)
[2019-07-27] MEDS ORDERED: ONDANSETRON HCL INJ/PF 4 MG/2 ML SDV IV PRN (10:48)
[2019-07-27] MEDS ORDERED: TRAMADOL HCL 50 MG TABLET PO PRN (10:48)
--- NOTE | 2019-07-27 13:57 | PDOC PROGRESS REPORT ---
Subjective Progress Note for:: 07/27/19 Subjective:: Patient feels well today. She still complains of some pain in her right hip region but states that the pain is tolerable. Otherwise only concerned that she is having some difficulty initiating high urination but thinks that it is secondary to her sitting in bed while attempting to urinate. She would like to see if that improves before considering Shah placement. Reason For Visit: ACUTE PELVIC FRACTURES Physical Exam Vital Signs: Temp Pulse Resp BP Pulse Ox 98.7 F 67 16 106/54 L 96 07/27/19 07:45 07/27/19 07:45 07/27/19 07:45 07/27/19 07:45 07/27/19 07:45 Intake & Output 07/26/19 07/27/19 07/28/19 06:59 06:59 06:59 Output Total 700 Balance -700 Weight 62.2 kg 62.2 kg General appearance: PRESENT: no acute distress, cooperative Neck exam: ABSENT: JVD Respiratory exam: PRESENT: clear to auscultation [place] Musculoskeletal exam: PRESENT: other - Ecchymosis to the right hip with some tenderness in the area. Neurological exam: PRESENT: alert, awake Results Laboratory Results: 07/27/19 04:17 07/27/19 04:17 07/26/19 07/26/19 07/26/19 21:10 21:10 21:13 WBC 9.3 RBC 4.02 Hgb 11.9 L Hct 35.6 L MCV 89 MCH 29.6 MCHC 33.4 RDW 14.7 H Plt Count 143 L Seg Neutrophils % 80.2 H Sodium 136.3 L Potassium 3.7 Chloride 101 Carbon Dioxide 26 Anion Gap 9 BUN 20 Creatinine 0.73 Est GFR ( Amer) > 60 Glucose 121 H Calcium 9.2 Magnesium Total Bilirubin 0.5 AST 28 Alkaline Phosphatase 59 Total Protein 6.5 Albumin 3.8 Triglycerides Cholesterol LDL Cholesterol Direct VLDL Cholesterol HDL Cholesterol TSH Urine Color STRAW Urine Appearance CLEAR Urine pH 8.0 Ur Specific [place] 1.008 Urine Protein NEGATIVE Urine Glucose (UA) NEGATIVE Urine Ketones TRACE H Urine Blood NEGATIVE Urine RBC (Auto) 0 07/27/19 07/27/19 07/27/19 04:17 04:17 04:17 WBC 8.4 RBC 3.91 Hgb 11.6 L Hct 34.4 L MCV 88 MCH 29.6 MCHC 33.6 RDW 14.8 H Plt Count 126 L Seg Neutrophils % Sodium 133.5 L Potassium 3.9 Chloride 99 Carbon Dioxide 27 Anion Gap 8 BUN 21 H Creatinine 0.67 Est GFR ( Amer) > 60 Glucose 109 Calcium 8.8 Magnesium 1.9 Total Bilirubin AST Alkaline Phosphatase Total Protein Albumin Triglycerides 49 Cholesterol 174.19 LDL Cholesterol Direct 78 VLDL Cholesterol 10.0 HDL Cholesterol 82 TSH 2.15 Urine Color Urine Appearance Urine pH Ur Specific [place] Urine Protein Urine Glucose (UA) Urine Ketones Urine Blood Urine RBC (Auto) Impressions: Hip/Pelvis X-Ray 07/26/19 17:56 IMPRESSION: Right superior pubic ramus fracture. Osteopenia. Assessment and Plan - Diagnosis (1) Fracture of right superior pubic ramus Qualifiers: Encounter type: initial encounter Fracture type: closed Qualified Code(s): S32.511A - Fracture of superior rim of right pubis, initial encounter for closed fracture Is this a current diagnosis for this admission?: Yes (2) GERD (gastroesophageal reflux disease) Qualifiers: Esophagitis presence: esophagitis presence not specified Qualified Code(s): K21.9 - Gastro-esophageal reflux disease without esophagitis Is this a current diagnosis for this admission?: Yes (3) Pain due to fracture Is this a current diagnosis for this admission?: Yes - Plan Summary Summary: Patient has been evaluated by orthopedics who recommends no need for surgical intervention at this time and allows for weightbearing as tolerated Pain control with Tylenol and Motrin with tramadol for breakthrough pain Continue PPI as statin PT OT - Time Time Spent with patient: 15-24 minutes
[2019-07-27] MEDS: TRAMADOL HCL 50 MG TABLET PO PRN (17:59)
[2019-07-27] MEDS: IBUPROFEN 400 MG TABLET PO PRN (21:31)
[2019-07-27] MEDS: ATORVASTATIN CALCIUM 40 MG TABLET PO SCH (21:31)
[2019-07-27] MEDS: PRIMIDONE 50 MG TABLET PO SCH (21:32)
[2019-07-28 05:03] LABS: HEMATOCRIT 32.5 % (36.0-47.0); HEMOGLOBIN 11.2 g/dL (12.0-15.5); MEAN CORPUSCULAR HEMOGLOBIN 30.2 pg (27.0-33.4); MEAN CORPUSCULAR HGB CONC 34.3 g/dL (32.0-36.0); MEAN CORPUSCULAR VOLUME 88 fl (80-97); PLATELET COUNT 113 10^3/uL (150-450); RED CELL DISTRIBUTION WIDTH 14.7 % (11.5-14.0); WHITE BLOOD COUNT 5.2 10^3/uL (4.0-10.5)
[2019-07-28] MEDS: PANTOPRAZOLE SODIUM 40 MG TABLET.DR PO SCH ×2 (06:56→16:21)
[2019-07-28] MEDS: TRAMADOL HCL 50 MG TABLET PO PRN ×2 (06:56→19:00)
[2019-07-28] MEDS: HEPARIN SOD (PORCINE) 5,000 UNIT/ML 1 ML VIAL SUBCUT SCH ×3 (06:57→21:54)
[2019-07-28] MEDS: DOCUSATE SODIUM 100 MG CAPSULE PO SCH ×2 (10:43→18:29)
[2019-07-28] MEDS: CYCLOSPORINE 0.05% OPH EMULSIO 0.4 ML DROPERETTE OU SCH ×2 (10:44→18:30)
[2019-07-28] MEDS: IBUPROFEN 400 MG TABLET PO PRN (10:59)
--- NOTE | 2019-07-28 15:11 | PDOC PROGRESS REPORT ---
Subjective Progress Note for:: 07/28/19 Subjective:: No adverse events overnight. She still has some pain that is pretty well controlled while she is at rest. She was able to ambulate about 15 feet with a walker yesterday. Reason For Visit: ACUTE PELVIC FRACTURES Physical Exam Vital Signs: Temp Pulse Resp BP Pulse Ox 98.3 F 74 16 118/50 L 100 07/28/19 10:53 07/28/19 10:53 07/28/19 10:53 07/28/19 10:53 07/28/19 10:53 Intake & Output 07/27/19 07/28/19 07/29/19 06:59 06:59 06:59 Intake Total 490 120 Output Total 700 3150 400 Balance -700 -2660 -280 Weight 62.2 kg 64.6 kg General appearance: PRESENT: no acute distress, cooperative Respiratory exam: PRESENT: clear to auscultation [place], symmetrical, unlabored. ABSENT: accessory muscle use, chest wall tenderness, crackles, prolonged expiratory phas, rhonchi, tachypnea, wheezes Cardiovascular exam: PRESENT: RRR, +S1, +S2 Pulses: PRESENT: normal carotid pulses Vascular exam: PRESENT: normal capillary refill GI/Abdominal exam: PRESENT: normal bowel sounds, soft. ABSENT: distended, guarding, rebound, tenderness Extremities exam: ABSENT: clubbing, pedal edema Musculoskeletal exam: PRESENT: normal inspection. ABSENT: deformity Neurological exam: PRESENT: alert, awake, oriented to person, oriented to place, oriented to situation Psychiatric exam: PRESENT: appropriate affect, normal mood Skin exam: PRESENT: dry, warm Results Laboratory Results: 07/28/19 04:26 07/27/19 04:17 07/28/19 04:26 WBC 5.2 RBC 3.70 L Hgb 11.2 L Hct 32.5 L MCV 88 MCH 30.2 MCHC 34.3 RDW 14.7 H Plt Count 113 L Impressions: Hip/Pelvis X-Ray 07/26/19 17:56 IMPRESSION: Right superior pubic ramus fracture. Osteopenia. Assessment and Plan - Diagnosis (1) Fracture of right superior pubic ramus Qualifiers: Encounter type: initial encounter Fracture type: closed Qualified Code(s): S32.511A - Fracture of superior rim of right pubis, initial encounter for closed fracture Is this a current diagnosis for this admission?: Yes Plan: She wants to go to rehab. We will check with case management to see if this is a possibility. If not, she have to go home with home health. - Plan Summary Summary: Patient has been evaluated by orthopedics who recommends no need for surgical intervention at this time and allows for weightbearing as tolerated Pain control with Tylenol and Motrin with tramadol for breakthrough pain Continue PPI as statin PT OT - Time Time Spent with patient: 15-24 minutes
[2019-07-28] MEDS: ACETAMINOPHEN 325 MG TABLET PO PRN (16:30)
[2019-07-28] MEDS: ATORVASTATIN CALCIUM 40 MG TABLET PO SCH (21:54)
[2019-07-28] MEDS: PRIMIDONE 50 MG TABLET PO SCH (21:54)
[2019-07-29] MEDS: ACETAMINOPHEN 325 MG TABLET PO PRN (01:37)
[2019-07-29 05:47] LABS: HEMOGLOBIN 10.9 g/dL (12.0-15.5); MEAN CORPUSCULAR HEMOGLOBIN 29.8 pg (27.0-33.4); MEAN CORPUSCULAR VOLUME 88 fl (80-97); PLATELET COUNT 107 10^3/uL (150-450); RED BLOOD COUNT 3.65 10^6/uL (3.72-5.28); RED CELL DISTRIBUTION WIDTH 14.9 % (11.5-14.0); WHITE BLOOD COUNT 6.6 10^3/uL (4.0-10.5)
[2019-07-29] MEDS: PANTOPRAZOLE SODIUM 40 MG TABLET.DR PO SCH ×2 (06:11→18:00)
[2019-07-29] MEDS: HEPARIN SOD (PORCINE) 5,000 UNIT/ML 1 ML VIAL SUBCUT SCH ×3 (06:11→22:55)
[2019-07-29] MEDS: TRAMADOL HCL 50 MG TABLET PO PRN ×3 (06:11→18:01)
[2019-07-29] MEDS: DOCUSATE SODIUM 100 MG CAPSULE PO SCH ×2 (09:25→18:00)
[2019-07-29] MEDS: IBUPROFEN 400 MG TABLET PO PRN ×2 (09:25→22:55)
[2019-07-29] MEDS: CYCLOSPORINE 0.05% OPH EMULSIO 0.4 ML DROPERETTE OU SCH ×2 (09:25→18:01)
--- NOTE | 2019-07-29 13:09 | PDOC PROGRESS REPORT ---
Subjective Progress Note for:: 07/29/19 Subjective:: Patient lying in bed comfortably. States she had a much better day yesterday. Was able to ambulate with minimal pain. Pain is worsened over the past evening and at night. Was able to walk 30 feet today. Reason For Visit: ACUTE PELVIC FRACTURES Physical Exam Vital Signs: Temp Pulse Resp BP Pulse Ox 98.5 F 83 18 114/48 L 98 07/29/19 12:00 07/29/19 12:00 07/29/19 12:00 07/29/19 12:00 07/29/19 12:00 Intake & Output 07/28/19 07/29/19 07/30/19 06:59 06:59 06:59 Intake Total 490 1220 Output Total 3150 1750 Balance -2660 -530 Weight 64.6 kg 64.6 kg Musculoskeletal exam: PRESENT: other - Right hip: Tenderness palpation the lateral trochanter and pubic rami. Positive logroll. Mild internal rotation of the right lower extremity. Intact plantarflexion/dorsiflexion. No sensory deficits. Results Laboratory Results: 07/29/19 04:03 07/27/19 04:17 07/29/19 04:03 WBC 6.6 RBC 3.65 L Hgb 10.9 L Hct 32.0 L MCV 88 MCH 29.8 MCHC 34.0 RDW 14.9 H Plt Count 107 L Impressions: Hip/Pelvis X-Ray 07/26/19 17:56 IMPRESSION: Right superior pubic ramus fracture. Osteopenia. Assessment & Plan - Diagnosis (1) Fracture of right superior pubic ramus Qualifiers: Encounter type: initial encounter Fracture type: closed Qualified Code(s): S32.511A - Fracture of superior rim of right pubis, initial encounter for closed fracture Is this a current diagnosis for this admission?: Yes Plan: Patient continues to have pain along her trochanteric region which is somewhat concerning for possible occult intratrochanteric fracture. At this point will obtain CT scan to evaluate for possible occult fracture. In the meantime he continue physical therapy with weightbearing as tolerated. - Time Time Spent with patient: Less than 15 minutes
--- NOTE | 2019-07-29 15:16 | RADIOLOGY REPORT (SQ) ---
EXAM DESCRIPTION: CT ABD/PELVIS NO ORAL OR IV COMPLETED DATE/TIME: 07/29/2019 2:17 pm REASON FOR STUDY: Pubic New Fx COMPARISON: None. TECHNIQUE: CT scan of the abdomen and pelvis performed without intravenous or oral contrast. Images reviewed with lung, soft tissue, and bone windows. Reconstructed coronal and sagittal MPR images revi ewed. Additional reconstructed images of the pelvis including 3D imaging. All images stored on PACS . All CT scanners at this facility use dose modulation, iterative reconstruction, and/or weight based d osing when appropriate to reduce radiation dose to as low as reasonably achievable (ALARA). [facility]: Dose Right [facility]: CareDose [facility]: Dose Right [facility]: Teradose 4D [facility]: [employer] RADIATION DOSE: CT Rad equipment meets quality standard of care and radiation dose reduction techniq ues were employed. CTDIvol: 5.3 mGy. DLP: 284 mGy-cm. mGy. LIMITATIONS: None. FINDINGS: LOWER CHEST: Small pleural effusions. No nodules or infiltrates. NON-CONTRASTED LIVER, SPLEEN, ADRENALS: Evaluation limited by lack of IV contrast. No identified sign ificant masses. PANCREAS: No masses. No peripancreatic inflammatory changes. GALLBLADDER: Gallstone. No inflammatory changes to suggest cholecystitis. RIGHT KIDNEY AND URETER: No suspicious masses. Assessment limited by lack of IV contrast. No signif icant calcifications. No hydronephrosis or hydroureter. LEFT KIDNEY AND URETER: No suspicious masses. Assessment limited by lack of IV contrast. No signifi cant calcifications. No hydronephrosis or hydroureter. AORTA AND RETROPERITONEUM: No aneurysm. No retroperitoneal masses or adenopathy. BOWEL AND PERITONEAL CAVITY: Prominent stool throughout the colon. No obvious masses or inflammatory changes. No free fluid. APPENDIX: Not visualized. PELVIS, BLADDER, AND ABDOMINAL WALL:No abnormal masses. No free fluid. Catheter in the bladder. OTHER: No other significant finding. PELVIC BONES: Comminuted impacted fracture of the right superior pubic ramus. Similar fracture of th e right inferior pubic ramus. SPINE: Degenerative changes. No acute findings. HIP(S): No acute fracture or dislocation. No worrisome bone lesions. PELVIC SOFT TISSUES: No significant findings. EXTRAPELVIC SOFT TISSUES: No significant findings. OTHER: No other significant finding. IMPRESSION: 1. COMMINUTED IMPACTED FRACTURES OF THE RIGHT SUPERIOR AND INFERIOR PUBIC RAMUS. 2. GALLSTONE. 3. SMALL PLEURAL EFFUSIONS. 4. PROMINENT STOOL THROUGHOUT THE COLON. POSSIBLE CONSTIPATION. 5. NO OTHER ACUTE OR SIGNIFICANT FINDINGS. TECHNICAL DOCUMENTATION: JOB ID: [id number] Quality ID # [id number]: Final reports with documentation of one or more dose reduction techniques (e.g., Au tomated exposure control, adjustment of the mA and/or kV according to patient size, use of iterative reconstruction technique) 2010 [employer]- All Rights Reserved Reading location - IP/workstation name: [email or web address]
--- NOTE | 2019-07-29 16:29 | PDOC PROGRESS REPORT ---
Subjective Progress Note for:: 07/29/19 Subjective:: No adverse events overnight. She states she was feeling poorly earlier this morning but she feels better now. She was sitting up eating her lunch when I saw her. She was complaining of persistent pain in her leg and a CT scan was done to better evaluate the pelvis and no evidence of a previous undetected injury was noted. Reason For Visit: ACUTE PELVIC FRACTURES Physical Exam Vital Signs: Temp Pulse Resp BP Pulse Ox 98.5 F 83 18 114/48 L 98 07/29/19 12:00 07/29/19 12:00 07/29/19 12:00 07/29/19 12:00 07/29/19 12:00 Intake & Output 07/28/19 07/29/19 07/30/19 06:59 06:59 06:59 Intake Total 490 1220 480 Output Total 3150 1750 500 Balance -2660 -530 -20 Weight 64.6 kg 64.6 kg General appearance: PRESENT: no acute distress, cooperative Respiratory exam: PRESENT: clear to auscultation [place], symmetrical, unlabored. ABSENT: accessory muscle use, chest wall tenderness, crackles, prolonged expiratory phas, rhonchi, tachypnea, wheezes Cardiovascular exam: PRESENT: RRR, +S1, +S2 Pulses: PRESENT: normal carotid pulses Vascular exam: PRESENT: normal capillary refill GI/Abdominal exam: PRESENT: normal bowel sounds, soft. ABSENT: distended, guarding, rebound, tenderness Extremities exam: ABSENT: clubbing, pedal edema Musculoskeletal exam: PRESENT: normal inspection. ABSENT: deformity Neurological exam: PRESENT: alert, awake, oriented to person, oriented to place, oriented to situation Psychiatric exam: PRESENT: appropriate affect, normal mood Skin exam: PRESENT: dry, warm Results Laboratory Results: 07/29/19 04:03 07/27/19 04:17 07/29/19 04:03 WBC 6.6 RBC 3.65 L Hgb 10.9 L Hct 32.0 L MCV 88 MCH 29.8 MCHC 34.0 RDW 14.9 H Plt Count 107 L Impressions: Hip/Pelvis X-Ray 07/26/19 17:56 IMPRESSION: Right superior pubic ramus fracture. Osteopenia. Abdomen/Pelvis CT 07/29/19 00:00 IMPRESSION: 1. COMMINUTED IMPACTED FRACTURES OF THE RIGHT SUPERIOR AND INFERIOR PUBIC RAMUS. 2. GALLSTONE. 3. SMALL PLEURAL EFFUSIONS. 4. PROMINENT STOOL THROUGHOUT THE COLON. POSSIBLE CONSTIPATION. 5. NO OTHER ACUTE OR SIGNIFICANT FINDINGS. Assessment and Plan - Diagnosis (1) Fracture of right superior pubic ramus Qualifiers: Encounter type: initial encounter Fracture type: closed Qualified Code(s): S32.511A - Fracture of superior rim of right pubis, initial encounter for closed fracture Is this a current diagnosis for this admission?: Yes Plan: She wants to go to rehab. We will check with case management to see if this is a possibility. If not, she have to go home with home health. Activity re commendations per orthopedics. - Plan Summary Summary: Patient has been evaluated by orthopedics who recommends no need for surgical intervention at this time and allows for weightbearing as tolerated Pain control with Tylenol and Motrin with tramadol for breakthrough pain Continue PPI as statin PT OT - Time Time Spent with patient: 15-24 minutes
[2019-07-29] MEDS: ATORVASTATIN CALCIUM 40 MG TABLET PO SCH (22:54)
[2019-07-29] MEDS: PRIMIDONE 50 MG TABLET PO SCH (23:00)
[2019-07-30] MEDS: TRAMADOL HCL 50 MG TABLET PO PRN ×3 (03:15→19:20)
[2019-07-30] MEDS: HEPARIN SOD (PORCINE) 5,000 UNIT/ML 1 ML VIAL SUBCUT SCH ×2 (06:13→13:14)
[2019-07-30] MEDS: PANTOPRAZOLE SODIUM 40 MG TABLET.DR PO SCH ×2 (06:13→17:37)
--- NOTE | 2019-07-30 08:23 | PDOC PROGRESS REPORT ---
Subjective Progress Note for:: 07/30/19 Subjective:: Patient lying in bed comfortably. Patient states her pain was much better last night as compared to the previous evening. Was able to walk 30 feet. Reason For Visit: ACUTE PELVIC FRACTURES Physical Exam Vital Signs: Temp Pulse Resp BP Pulse Ox 99.1 F 77 17 122/55 L 98 07/29/19 23:30 07/29/19 23:30 07/29/19 23:30 07/29/19 23:30 07/29/19 23:30 Intake & Output 07/29/19 07/30/19 07/31/19 06:59 06:59 06:59 Intake Total 1220 1070 Output Total 1750 2050 Balance -530 -980 Weight 64.6 kg 64.8 kg General appearance: PRESENT: no acute distress, well-developed, well-nourished Head exam: PRESENT: atraumatic, normocephalic Eye exam: PRESENT: conjunctiva pink, EOMI, PERRLA. ABSENT: scleral icterus Ear exam: PRESENT: normal external ear exam Mouth exam: PRESENT: moist, tongue midline Neck exam: PRESENT: full ROM. ABSENT: carotid bruit, JVD, lymphadenopathy, thyromegaly Respiratory exam: PRESENT: unlabored Cardiovascular exam: PRESENT: RRR. ABSENT: diastolic murmur, rubs, systolic murmur Pulses: PRESENT: normal dorsalis pedis pul, +2 pedal pulses bilateral Vascular exam: PRESENT: normal capillary refill GI/Abdominal exam: PRESENT: normal bowel sounds, soft. ABSENT: distended, guarding, mass, organolmegaly, rebound, tenderness Rectal exam: PRESENT: deferred Musculoskeletal exam: PRESENT: other - Right lower extremity: Swelling ecchymosis along the lateral aspect of the hip. Intact plantarfl exion/dorsiflexion. No sensory deficits. Dorsalis pedis pulse 2+. Pain with hip range of motion. Tenderness along the superior rami. Neurological exam: PRESENT: alert, awake, oriented to person, oriented to place, oriented to time, oriented to situation, CN II-XII grossly intact. ABSENT: motor sensory deficit Psychiatric exam: PRESENT: appropriate affect, normal mood. ABSENT: homicidal ideation, suicidal ideation Skin exam: PRESENT: dry, intact, warm. ABSENT: cyanosis, rash Results Laboratory Results: 07/29/19 04:03 07/27/19 04:17 Impressions: Hip/Pelvis X-Ray 07/26/19 17:56 IMPRESSION: Right superior pubic ramus fracture. Osteopenia. Abdomen/Pelvis CT 07/29/19 00:00 IMPRESSION: 1. COMMINUTED IMPACTED FRACTURES OF THE RIGHT SUPERIOR AND INFERIOR PUBIC RAMUS. 2. GALLSTONE. 3. SMALL PLEURAL EFFUSIONS. 4. PROMINENT STOOL THROUGHOUT THE COLON. POSSIBLE CONSTIPATION. 5. NO OTHER ACUTE OR SIGNIFICANT FINDINGS. Assessment & Plan - Diagnosis (1) Fracture of right superior pubic ramus Qualifiers: Encounter type: initial encounter Fracture type: closed Qualified Code(s): S32.511A - Fracture of superior rim of right pubis, initial encounter for closed fracture Is this a current diagnosis for this admission?: Yes Plan: I have reviewed CT scan which confirmed superior and inferior pubic rami fracture. No associated fractures of the proximal femur. Patient will continue current physical therapy regimen with weightbearing as tolerated. Given patient's pain and limited ambulatory status she may require inpatient rehabilitation. Patient may follow-up as an outpatient with orthopedics. - Time Time Spent with patient: Less than 15 minutes
[2019-07-30] MEDS: CYCLOSPORINE 0.05% OPH EMULSIO 0.4 ML DROPERETTE OU SCH ×2 (09:27→17:37)
[2019-07-30] MEDS: DOCUSATE SODIUM 100 MG CAPSULE PO SCH ×2 (09:27→17:37)
[2019-07-30] MEDS: ACETAMINOPHEN 325 MG TABLET PO PRN (12:44)
[2019-07-30 13:40] LABS: APPEARANCE,URINE CLOUDY; BILIRUBIN,URINE NEGATIVE (NEGATIVE); COLOR,URINE YELLOW; GLUCOSE, URINE NEGATIVE (NEGATIVE); KETONES,URINE NEGATIVE (NEGATIVE); LEUKOCYTE ESTERASE,URINE LARGE (NEGATIVE); NITRITE,URINE POSITIVE (NEGATIVE); PROTEIN,URINE 100 mg/dL (NEGATIVE); URINE SPECIFIC GRAVITY 1.013; UROBILINOGEN,URINE NEGATIVE mg/dL (<2.0)
--- NOTE | 2019-07-30 16:36 | PDOC TRANSFER SUMMARY ---
Impression - Admit/DC Date/PCP Admission Date/Primary Care Provider: 07/26/19 21:53 MEGAN BAKER MD Discharge Date: 07/30/19 - Discharge Diagnosis (1) Fracture of right superior pubic ramus Is this a current diagnosis for this admission?: Yes - Assessment Summary: Patient has been evaluated by orthopedics who recommends no need for surgical intervention at this time and allows for weightbearing as tolerated Pain control with Tylenol and Motrin with tramadol for breakthrough pain Continue PPI as statin PT OT - Additional Information Resuscitation Status: Full Code Discharge Diet: Cardiac Discharge Activity: Balance Activity w/Rest, Supervised Activity Referrals: KATHY PARKER [Other] Prescriptions: Tramadol HCl [Ultram 50 mg Tablet] 50 mg PO Q4HP PRN #10 tablet PRN Reason: Home Medications: Lovastatin [Altoprev] 40 mg PO QPM 11/28/16 Omeprazole 40 mg PO QAM 11/28/16 Primidone [Mysoline] 25 mg PO QHS 11/28/16 Cyclosporine 0.05% Oph Emulsio [Restasis 0.05% Oph Emulsion Pf 0.4 ml] 1 drop OU BID 07/26/19 Ascorbic Acid [Vitamin C 500 mg Tablet] 500 mg PO DAILY 07/27/19 Calcium/D3/Mag Ox/[employer]/Sahil/Zn [Caltrate+D3 Plus Mineral Minis] 4 tab PO DAILY 07/27/19 Acetaminophen [Tylenol 325 mg Tablet] 650 mg PO Q4HP PRN tablet 07/30/19 Docusate Sodium [Colace 100 mg Capsule] 100 mg PO BID capsule 07/30/19 Ibuprofen [Motrin 400 mg Tablet] 400 mg PO Q6HP PRN tablet 07/30/19 Tramadol HCl [Ultram 50 mg Tablet] 50 mg PO Q4HP PRN #10 tablet 07/30/19 History of Present Illiness History of Present Illness: LAURY PALMER is a 79 year old female who presented to the emergency room with acute pelvic pain. Patient admits the acute onset of pain in her right hip/pelvis immediately after an accidental fall while cleaning around the desks in their home office shortly before her EMS arrival to the emergency room. The pelvic pain is a constant severe sharp pain in the right anterior aspect of the hip/pelvis without radiation, worsened by any movements or attempts at weightbearing. She did not experience loss of consciousness or other injury in her fall. She denies associated or accompanying signs and symptoms. She denies prior similar episodes. She has not identified any additional aggravating or ameliorating factors for her pelvic pain. In the emergency room she was found to have a comminuted fracture of the right pubic ramus and was subsequently admitted to the hospital for further evaluation and treatment. Hospital Course Hospital Course: She was still having some pain and so a CT scan of the pelvis was done which just showed the pubic rami fractures that were detected previously and it did not show any evidence of femoral fracture in the proximal femur. She was able to ambulate minimally initially, but she got incremental improvements in distance with a walker and assistance. She was seen in consultation by orthopedics who recommended weightbearing as tolerated and pain control. Patient wanted to go to a alf facility and so referrals were made. She obtained a bed at the [facility]. Her labs and examination were reassuring and she is discharged in good condition. Physical Exam Vital Signs: Temp Pulse Resp BP Pulse Ox 98.9 F 85 15 115/58 L 97 07/30/19 11:45 07/30/19 11:45 07/30/19 11:45 07/30/19 11:45 07/30/19 11:45 Intake & Output 07/29/19 07/30/19 07/31/19 06:59 06:59 06:59 Intake Total 1220 1070 360 Output Total 1750 2050 Balance -530 -980 360 Weight 64.6 kg 64.8 kg General appearance: PRESENT: no acute distress, cooperative Respiratory exam: PRESENT: clear to auscultation [place], symmetrical, unlabored. ABSENT: accessory muscle use, chest wall tenderness, crackles, prolonged expiratory phas, rhonchi, tachypnea, wheezes Cardiovascular exam: PRESENT: RRR, +S1, +S2 Pulses: PRESENT: normal carotid pulses Vascular exam: PRESENT: normal capillary refill GI/Abdominal exam: PRESENT: normal bowel sounds, soft. ABSENT: distended, guarding, rebound, tenderness Extremities exam: ABSENT: clubbing, pedal edema Musculoskeletal exam: PRESENT: normal inspection. ABSENT: deformity Neurological exam: PRESENT: alert, awake, oriented to person, oriented to place, oriented to situation Psychiatric exam: PRESENT: appropriate affect, normal mood Skin exam: PRESENT: dry, warm Results Laboratory Results: WBC 6.6 10^3/uL (4.0-10.5) 07/29/19 04:03 RBC 3.65 10^6/uL (3.72-5.28) L 07/29/19 04:03 Hgb 10.9 g/dL (12.0-15.5) L 07/29/19 04:03 Hct 32.0 % (36.0-47.0) L 07/29/19 04:03 MCV 88 fl (80-97) 07/29/19 04:03 MCH 29.8 pg (27.0-33.4) 07/29/19 04:03 MCHC 34.0 g/dL (32.0-36.0) 07/29/19 04:03 RDW 14.9 % (11.5-14.0) H 07/29/19 04:03 Plt Count 107 10^3/uL (150-450) L 07/29/19 04:03 Lymph % (Auto) 12.9 % (13-45) L 07/26/19 21:10 [place] % (Auto) 6.5 % (3-13) 07/26/19 21:10 Eos % (Auto) 0.1 % (0-6) 07/26/19 21:10 Baso % (Auto) 0.3 % (0-2) 07/26/19 21:10 Absolute Neuts (auto) 7.4 10^3/uL (1.7-8.2) 07/26/19 21:10 Absolute Lymphs (auto) 1.2 10^3/uL (0.5-4.7) 07/26/19 21:10 Absolute Monos (auto) 0.6 10^3/uL (0.1-1.4) 07/26/19 21:10 Absolute Eos (auto) 0.0 10^3/uL (0.0-0.6) 07/26/19 21:10 Absolute Basos (auto) 0.0 10^3/uL (0.0-0.2) 07/26/19 21:10 Seg Neutrophils % 80.2 % (42-78) H 07/26/19 21:10 Sodium 133.5 mmol/L (137-145) L 07/27/19 04:17 Potassium 3.9 mmol/L (3.6-5.0) 07/27/19 04:17 Chloride 99 mmol/L (98-107) 07/27/19 04:17 Carbon Dioxide 27 mmol/L (22-30) 07/27/19 04:17 Anion Gap 8 (5-19) 07/27/19 04:17 BUN 21 mg/dL (7-20) H 07/27/19 04:17 Creatinine 0.67 mg/dL (0.52-1.25) 07/27/19 04:17 Est GFR ( Amer) > 60 (>60) 07/27/19 04:17 Est GFR (MDRD) Non-Af > 60 (>60) 07/27/19 04:17 Glucose 109 mg/dL (75-110) 07/27/19 04:17 Calcium 8.8 mg/dL (8.4-10.2) 07/27/19 04:17 Magnesium 1.9 mg/dL (1.6-2.3) 07/27/19 04:17 Total Bilirubin 0.5 mg/dL (0.2-1.3) 07/26/19 21:10 Direct Bilirubin 0.0 mg/dL (0.0-0.4) 07/26/19 21:10 Neonat Total Bilirubin Not Reportable 07/26/19 21:10 Neonat Direct Bilirubin Not Reportable 07/26/19 21:10 Neonat Indirect Bili Not Reportable 07/26/19 21:10 AST 28 U/L (14-36) 07/26/19 21:10 ALT 24 U/L (<35) 07/26/19 21:10 Alkaline Phosphatase 59 U/L (38-126) 07/26/19 21:10 Total Protein 6.5 g/dL (6.3-8.2) 07/26/19 21:10 Albumin 3.8 g/dL (3.5-5.0) 07/26/19 21:10 Triglycerides 49 mg/dL (<150) 07/27/19 04:17 Cholesterol 174.19 mg/dL (0-200) 07/27/19 04:17 LDL Cholesterol Direct 78 mg/dL (<100) 07/27/19 04:17 VLDL Cholesterol 10.0 mg/dL (10-31) 07/27/19 04:17 HDL Cholesterol 82 mg/dL (>40) 07/27/19 04:17 TSH 2.15 uIU/mL (0.47-4.68) 07/27/19 04:17 Urine Color YELLOW 07/30/19 08:56 Urine Appearance CLOUDY 07/30/19 08:56 Urine pH 7.0 (5.0-9.0) 07/30/19 08:56 Ur Specific [place] 1.013 07/30/19 08:56 Urine Protein 100 mg/dL (NEGATIVE) H 07/30/19 08:56 Urine Glucose (UA) NEGATIVE mg/dL (NEGATIVE) 07/30/19 08:56 Urine Ketones NEGATIVE mg/dL (NEGATIVE) 07/30/19 08:56 Urine Blood MODERATE (NEGATIVE) H 07/30/19 08:56 Urine Nitrite POSITIVE (NEGATIVE) H 07/30/19 08:56 Urine Nitrite (Reflex) NEGATIVE (NEGATIVE) 07/26/19 21:13 Urine Bilirubin NEGATIVE (NEGATIVE) 07/30/19 08:56 Urine Urobilinogen NEGATIVE mg/dL (<2.0) 07/30/19 08:56 Ur Leukocyte Esterase LARGE (NEGATIVE) H 07/30/19 08:56 Leukocyte Esterase Rfl NEGATIVE (NEGATIVE) 07/26/19 21:13 Urine WBC (Auto) 65 /HPF 07/30/19 08:56 Urine RBC (Auto) 5 /HPF 07/30/19 08:56 Urine Bacteria (Auto) 1+ /HPF 07/30/19 08:56 Urine WBC (Reflex) 2 /HPF 07/26/19 21:13 Urine WBC Clumps MOD /HPF 07/30/19 08:56 Squamous Epi Cells Auto <1 /HPF 07/30/19 08:56 Urine Mucus (Auto) RARE /LPF 07/30/19 08:56 Urine Ascorbic Acid NEGATIVE (NEGATIVE) 07/30/19 08:56 Impressions: Hip/Pelvis X-Ray 07/26/19 17:56 IMPRESSION: Right superior pubic ramus fracture. Osteopenia. Abdomen/Pelvis CT 07/29/19 00:00 IMPRESSION: 1. COMMINUTED IMPACTED FRACTURES OF THE RIGHT SUPERIOR AND INFERIOR PUBIC RAMUS. 2. GALLSTONE. 3. SMALL PLEURAL EFFUSIONS. 4. PROMINENT STOOL THROUGHOUT THE COLON. POSSIBLE CONSTIPATION. 5. NO OTHER ACUTE OR SIGNIFICANT FINDINGS. Plan Time Spent: Greater than 30 Minutes Stroke Is this a Stroke Patient?: No Acute Heart Failure - Is this a Heart Failure Patient?: No
[2019-07-30] MEDS: IBUPROFEN 400 MG TABLET PO PRN (17:37)
[2019-07-30 17:45] VITALS: BP 119/52
== END 2019-07-30 20:01 | DRG 536 ==
LOC: ER 17:48 → EH 21:53 → 5 07-27 00:13
PROVIDERS: ADMIT Emergency Medicine; ATTEND Emergency Medicine
DX: S32.591A Other specified fracture of right pubis, initial encounter for closed fracture (principal); W01.0XXA Fall on same level from slipping, tripping and stumbling without subsequent striking against object, initial encounter; G89.11 Acute pain due to trauma; E78.5 Hyperlipidemia, unspecified; K21.9 Gastro-esophageal reflux disease without esophagitis; G25.0 Essential tremor; Y93.E5 Activity, floor mopping and cleaning; Y92.008 Other place in unspecified non-institutional (private) residence as the place of occurrence of the external cause; Z82.3 Family history of stroke; Z83.3 Family history of diabetes mellitus; Z82.49 Family history of ischemic heart disease and other diseases of the circulatory system; Z88.0 Allergy status to penicillin; Z88.2 Allergy status to sulfonamides; Z91.048 Other nonmedicinal substance allergy status
CPT/HCPCS: 36415; 74176; 80048; 80053; 80061; 81001; 83735; 84443; 85025; 85027; 96374; 99285; J1644; J2270; J2405; J2550; J3490